=== PATIENT | female | born 1940 | race Caucasian/White ===

== ENCOUNTER 2017-01-02 22:57 | Emergency (ER) | payer MEDICARE ==
[~2017-01-02] VITALS: Ht 172.7 cm; Wt 73.4 kg
[2017-01-02 22:59] VITALS: BP 143/92
[2017-01-02] MEDS ORDERED: CALC-18 PO (23:46)
[2017-01-02] MEDS ORDERED: ATOR20TA9 PO (23:46)
[2017-01-02] MEDS ORDERED: MULT1TAB57 PO (23:46)
[2017-01-03 00:26] LABS: BLOOD UREA NITROGEN 31 mg/dL (7-18)
== END 2017-01-03 00:55 | disposition home or self-care (01) ==
LOC: ED 23:59
DX: E86.0 Dehydration (principal); Z87.891 Personal history of nicotine dependence
CPT/HCPCS: 36415; 80048; 83735; 85025; 93005

== ENCOUNTER 2018-02-11 18:34 | Emergency (ER) | payer MEDICARE ==
[~2018-02-11] VITALS: Ht 170.2 cm; Wt 74.7 kg
[~2018-02-11 18:34] MED LIST: ATOR20TA9 PO; CALC-18 PO; MULT1TAB57 PO
[2018-02-11 18:36] VITALS: BP 161/84
[2018-02-11 19:37] LABS: BASOPHILS # (AUTO) 0.02 x10^3/uL (0-0.1); BASOPHILS % (AUTO) 0 % (0-1); EOSINOPHILS # (AUTO) 0.31 x10^3/uL (0-0.4); EOSINOPHILS % (AUTO) 4 % (1-7); LYMPHOCYTES # (AUTO) 1.81 x10^3/uL (1-3.4); LYMPHOCYTES % (AUTO) 20 % (22-44); MD NO; MEAN CORPUSCULAR HEMOGLOBIN 33.8 pg (27.0-34.8); MEAN CORPUSCULAR HGB CONC 34.7 g/dL (32.4-35.8); MEAN CORPUSCULAR VOLUME 97.5 fL (80-100); MEAN PLATELET VOLUME 8.9 fL (7.4-10.4); MONOCYTES # (AUTO) 0.63 x10^3/uL (0.2-0.8); MONOCYTES % (AUTO) 7 % (2-9); NEUTROPHILS # (AUTO) 6.19 x10^3/uL (1.8-6.8); NEUTROPHILS % (AUTO) 69 % (42-75); PLATELET COUNT 193 x10^3/uL (130-400); RED BLOOD COUNT 4.77 x10^6/uL (3.82-5.3); RED CELL DISTRIBUTION WIDTH 13.5 % (9.6-15.2)
[2018-02-11 19:44] LABS: ALBUMIN 3.9 g/dL (3.4-5.0); ANION GAP 4 mmol/L (5-15); CALCIUM 9.3 mg/dL (8.5-10.1); CHLORIDE 101 mmol/L (98-107); CREATININE 1.08 mg/dL (0.55-1.02)
== END 2018-02-11 21:18 | disposition home or self-care (01) ==
LOC: ED 21:12
DX: N95.0 Postmenopausal bleeding (principal)
CPT/HCPCS: 36415; 76830; 80048; 82040; 85025; 99285

== ENCOUNTER 2018-07-17 13:32 | Inpatient (IN) | payer MEDICARE ==
[~2018-07-17] VITALS: Ht 170.2 cm; Wt 76.4 kg
[~2018-07-17 13:32] MED LIST changes: +ATOR20TA37 PO; -ATOR20TA9 PO
[2018-07-17] MEDS ORDERED: SODIUM CHLORIDE FLUSH 10ML SYR IVF ONE (14:30)
[2018-07-17 14:53] LABS: MICROSCOPIC NOT IND
[2018-07-17 14:59] LABS: CULTURE INDICATED? NO
[2018-07-17 15:01] LABS: BASOPHILS # (AUTO) 0.08 x10^3/uL (0-0.1); BASOPHILS % (AUTO) 1 % (0-1); EOSINOPHILS # (AUTO) 0.09 x10^3/uL (0-0.4); EOSINOPHILS % (AUTO) 1 % (1-7); LYMPHOCYTES # (AUTO) 1.64 x10^3/uL (1-3.4); LYMPHOCYTES % (AUTO) 14 % (22-44); MD NO; MEAN CORPUSCULAR HEMOGLOBIN 33.5 pg (27.0-34.8); MEAN CORPUSCULAR HGB CONC 33.9 g/dL (32.4-35.8); MEAN CORPUSCULAR VOLUME 98.7 fL (80-100); MEAN PLATELET VOLUME 9.4 fL (7.4-10.4); MONOCYTES % (AUTO) 6 % (2-9); NEUTROPHILS # (AUTO) 8.95 x10^3/uL (1.8-6.8); NEUTROPHILS % (AUTO) 78 % (42-75); PLATELET COUNT 193 x10^3/uL (130-400); RED BLOOD COUNT 4.96 x10^6/uL (3.82-5.3); RED CELL DISTRIBUTION WIDTH 13.5 % (9.6-15.2)
[2018-07-17 15:09] LABS: ANION GAP 10 mmol/L (5-15); CALCIUM 8.5 mg/dL (8.5-10.1); CHLORIDE 100 mmol/L (98-107)
[2018-07-17] MEDS ORDERED: OMNIPAQUE 350 MG/ML, 100ML BOTTLE ONE (16:02)
[2018-07-17] MEDS ORDERED: PIPERACILLIN/TAZO/PMX 4.5GM 100 ML IV ONE (16:30)
[2018-07-17] MEDS ORDERED: SENN-88 PO (16:49)
[2018-07-17] MEDS ORDERED: SODIUM CHLORIDE 0.9% 1,000 ML IV SCH (17:03)
[2018-07-17] MEDS ORDERED: ACETAMINOPHEN 325 MG TABLET PO PRN ×2 (17:30→22:00)
[2018-07-17] MEDS ORDERED: ONDANSETRON 2MG/ML, 2ML IVPush PRN (17:30)
[2018-07-17] MEDS ORDERED: KETOROLAC 30 MG/1 ML IV PRN (17:30)
[2018-07-17] MEDS ORDERED: ASA/APAP/ CAFFEINE TABLET PO PRN (17:30)
[2018-07-17 18:14] VITALS: BP 156/85
[2018-07-17] MEDS ORDERED: PIPERACILLIN/TAZO/PMX 3.375GM 50 ML IV SCH (18:30)
[2018-07-17 20:00] VITALS: BP 154/82
[2018-07-17] MEDS ORDERED: ATORVASTATIN 40 MG TABLET PO SCH (21:00)
[2018-07-17] MEDS ORDERED: BUPIVACAINE/PF-EPI 0.5% 1:200K ONE (21:14)
[2018-07-17] MEDS ORDERED: BUPIVACAINE/PF-EPI 0.5% 1:200K IM ONE (21:22)
[2018-07-17] MEDS ORDERED: FENTANYL PF 100 MCG/2ML ONE (21:31)
[2018-07-17] MEDS ORDERED: MIDAZOLAM 1 MG/ML, 2ML ONE (21:31)
[2018-07-17] MEDS ORDERED: PROPOFOL 10 MG/ML, 20ML ONE (21:32)
[2018-07-17] MEDS ORDERED: CEFAZOLIN 1,000 MG ONE (21:33)
[2018-07-17] MEDS ORDERED: ROCURONIUM 10 MG/ML,10ML ONE (21:33)
[2018-07-17] MEDS ORDERED: ONDANSETRON 2MG/ML, 2ML ONE (21:54)
[2018-07-17] MEDS ORDERED: FENTANYL PF 100 MCG/2ML IV PRN (22:00)
[2018-07-17] MEDS ORDERED: METOCLOPRAMIDE 5 MG/ML, 2ML IV PRN (22:00)
[2018-07-17] MEDS ORDERED: LORazepam 2 MG/ML, 1ML IVPush PRN (22:00)
[2018-07-17] MEDS ORDERED: OXYcodone 5 MG/5 ML ORAL.SOL UDC PO PRN (22:00)
[2018-07-17] MEDS ORDERED: LABETALOL 5MG/ML, 20ML IV PRN (22:00)
[2018-07-17] MEDS ORDERED: MEPERIDINE/PF 25MG/0.5ML IVPush PRN (22:00)
[2018-07-17] MEDS ORDERED: hydrALAzine 20 MG/ML, 1ML IV PRN (22:00)
[2018-07-17] MEDS ORDERED: HYDROmorphone 2 MG/ML, 1ML IVPush PRN (22:00)
[2018-07-17] MEDS ORDERED: SUGAMMADEX 200 MG/2 ML IVPush ONE (22:03)
[2018-07-17] MEDS ORDERED: ACETAMINOPHEN 650 MG/20.3 ML UDC ONE (22:27)
[2018-07-17] MEDS ORDERED: OXYcodone 5 MG/5 ML ORAL.SOL UDC ONE (22:27)
[2018-07-17] MEDS ORDERED: KETOROLAC 30 MG/1 ML ONE (22:45)
[2018-07-17] MEDS ORDERED: morphine SULFATE 10 MG/ML, 1ML ONE (22:45)
[2018-07-17] MEDS: morphine SULFATE 10 MG/ML, 1ML IVPush PRN ×2 (22:49→22:58)
[2018-07-18 02:39] VITALS: BP 92/57
[2018-07-18 05:56] LABS: BASOPHILS # (AUTO) 0.02 x10^3/uL (0-0.1); BASOPHILS % (AUTO) 0 % (0-1); EOSINOPHILS # (AUTO) 0.08 x10^3/uL (0-0.4); EOSINOPHILS % (AUTO) 1 % (1-7); LYMPHOCYTES % (AUTO) 15 % (22-44); MD NO; MEAN CORPUSCULAR HGB CONC 34.6 g/dL (32.4-35.8); MEAN CORPUSCULAR VOLUME 98.2 fL (80-100); MEAN PLATELET VOLUME 9.3 fL (7.4-10.4); MONOCYTES # (AUTO) 0.62 x10^3/uL (0.2-0.8); MONOCYTES % (AUTO) 8 % (2-9); NEUTROPHILS # (AUTO) 6.36 x10^3/uL (1.8-6.8); NEUTROPHILS % (AUTO) 77 % (42-75); PLATELET COUNT 151 x10^3/uL (130-400); RED BLOOD COUNT 3.95 x10^6/uL (3.82-5.3); RED CELL DISTRIBUTION WIDTH 13.2 % (9.6-15.2)
[2018-07-18 06:10] LABS: ANION GAP 9 mmol/L (5-15); CALCIUM 7.9 mg/dL (8.5-10.1); CHLORIDE 105 mmol/L (98-107)
[2018-07-18 07:04] VITALS: BP 96/57
[2018-07-18] MEDS ORDERED: CALCIUM/VITAMIN D3 250-125 TABLET PO SCH (09:00)
[2018-07-18] MEDS ORDERED: SENNOSIDES 8.6 MG TABLET PO SCH (09:00)
[2018-07-18 10:12] VITALS: BP 94/51
[2018-07-18] MEDS ORDERED: HYDR-3240 PO (10:56)
[2018-07-18] MEDS ORDERED: ENOXAPARIN 40 MG/0.4 ML SQ SCH (18:30)
== END 2018-07-18 11:24 | disposition home or self-care (01) | DRG 342 ==
LOC: ED 14:12 → EDIP 16:53 → 4NOR 18:02 → DCLOUNGE 07-18 11:10
PROVIDERS: ADMIT Internal Medicine; ATTEND Internal Medicine
PROC: 0DTJ4ZZ Resection of Appendix, Percutaneous Endoscopic Approach (ICD-10-PCS; principal; 2018-07-17 20:00)
DX: K35.30 Acute appendicitis with localized peritonitis, without perforation or gangrene (principal); E87.1 Hypo-osmolality and hyponatremia; E86.0 Dehydration; E78.5 Hyperlipidemia, unspecified; Z96.641 Presence of right artificial hip joint; I45.10 Unspecified right bundle-branch block; K66.0 Peritoneal adhesions (postprocedural) (postinfection); E86.1 Hypovolemia; Z82.49 Family history of ischemic heart disease and other diseases of the circulatory system; Z87.891 Personal history of nicotine dependence; Z85.3 Personal history of malignant neoplasm of breast
CPT/HCPCS: 36415; 71045; 74177; 80048; 81003; 82040; 85025; 88304; 93005; 96374; 99285; G0378; J0690; J1885; J2250; J2405; J2543; J2704; J3010; Q9967; J2270

== ENCOUNTER 2018-12-29 06:25 | Emergency (ER) | payer MEDICARE ==
[~2018-12-29] VITALS: Ht 170.2 cm; Wt 76.1 kg
[~2018-12-29 06:25] MED LIST changes: +HYDR-3240 PO; +SENN-88 PO
[2018-12-29 06:27] VITALS: BP 145/76
--- NOTE | 2018-12-29 06:48 | NUR ---
SORE THROAT AND HORSE FOR A DAY AND NOW SWELLING AND DISCHARGE LEFT EYE
[2018-12-29] MEDS ORDERED: FLUORESCEIN OPHTHALMIC 1 MG STRIP ONE (07:02)
[2018-12-29] MEDS ORDERED: PROPARACAINE OPHTH 0.5%, 15ML ONE (07:03)
--- NOTE | 2018-12-29 08:04 | NUR ---
AFTER PROVIDER EVAL TO XRAY. DAUGHTER AT SIDE WHILE AWAITING DISPO
== END 2018-12-29 09:04 | disposition home or self-care (01) ==
LOC: ED 07:45
DX: H10.022 Other mucopurulent conjunctivitis, left eye (principal); J02.8 Acute pharyngitis due to other specified organisms; B97.89 Other viral agents as the cause of diseases classified elsewhere
CPT/HCPCS: 71046; 99283